=== PATIENT | male | born 2000 | race African-American/Black ===

== ENCOUNTER 2022-01-28 13:03 | Emergency (ER) | payer SELFPAY ==
[2022-01-28 13:50] LABS: Absolute Lymphocytes (CBC) 1.3 K/uL (0.7-4.9); Hematocrit 40.6 % (39.6-49.0); Lymphocytes % 17.7 % (15.3-44.8); MPV 7.5 fL (7.6-11.3)
[2022-01-28 14:09] LABS: Troponin High Sensitivity 15.3 pg/mL (<58.9)
--- NOTE | 2022-01-28 14:34 | RAD REPORT ---
EXAM DESCRIPTION: RAD - Chest Single View - 01/28/2022 2:11 pm CLINICAL HISTORY: CHEST PAIN COMPARISON: No comparisons FINDINGS: Lines: None. Lungs: No evidence of edema or pneumonia. Pleural: No significant pleural effusions or pneumothorax. Cardiac: The heart size is within normal limits. Bones: No acute fractures. Other: IMPRESSION: No acute cardiopulmonary disease.
[2022-01-28] MEDS ORDERED: KETOROLAC 30 MG/ML INJ ONE (14:46)
--- NOTE | 2022-01-28 15:59 | EDPHYS ---
Physician Documentation [facility] Name: Nelson aCstro Age: 21 yrs Sex: Male : 2000 Arrival Date: 01/28/2022 Time: 13:04 Bed 19 Private MD: ED Physician Brian Salvador HPI: 01/28 13:21 This 21 yrs old Black Male presents to ER via EMS with complaints of Chest Pain. [facility] 13:21 The patient or guardian reports chest pain that is located primarily in the substernal [facility] area. The pain does not radiate. Associated signs and symptoms: Pertinent positives:. The chest pain is described as sharp. Duration: The patient or guardian reports a single episode. This is a 21 year old male with no chronic medical conditions that presents to the ED with complaints of left lower chest pain exacerbated by deep breath. Symptoms began this morning around 6 am. Patient states developing hightheadedness later in the day. Denies hemoptysis, fever, states having a slight cough yesterday. Denies previous cardiac issues. . Historical: - Allergies: 13:06 No Known Allergies; tw2 - Home Meds: 13:06 None [Active]; tw2 - PMHx: 13:06 None; tw2 - PSHx: 13:06 None; tw2 - Immunization history:: Adult Immunizations. - Social history:: Smoking status: . ROS: 13:21 Constitutional: Negative for fever, chills, and weight loss. jmm 13:21 Respiratory: Negative for shortness of breath, cough, wheezing, and pleuritic chest pain, Abdomen/GI: Negative for abdominal pain, nausea, vomiting, diarrhea, and constipation. 13:21 Cardiovascular: Positive for chest pain. 13:21 All other systems are negative. Exam: 13:14 ECG was reviewed by the Attending Physician. ms3 13:21 Constitutional: This is a well developed, well nourished patient who is awake, alert, jmm and in no acute distress. Head/Face: atraumatic. Eyes: EOMI, no conjunctival erythema appreciated ENT: Moist Mucus Membranes Neck: Trachea midline, Supple Chest/axilla: Normal chest wall appearance and motion. Respiratory: Normal respirations, no respiratory distress appreciated 13:21 Abdomen/GI: Non distended, soft Back: Normal ROM Skin: General appearance color normal MS/ Extremity: Moves all extremities, no obvious deformities appreciated, no edema noted to the lower extremities Neuro: Awake and alert Psych: Behavior is normal, Mood is normal, Patient is cooperative and pleasant 13:21 Cardiovascular: Rate: normal, Rhythm: regular, Pulses: no pulse deficits are appreciated. Vital Signs: 13:05 BP 130 / 72; Pulse 65; Resp 17; Temp 98.1(TE); Pulse Ox 100% on R/A; Weight 77.11 kg tw2 (R); Height 5 ft. 9 in. (175.26 cm); Pain 8/10; 15:38 BP 120 / 51; Pulse 54; Resp 18; Pulse Ox 100% on R/A; maurice 13:05 Body Mass Index 25.10 (77.11 kg, 175.26 cm) tw2 MDM: 13:21 Patient medically screened. [facility] 15:58 Data reviewed: vital signs, nurses notes. [facility] 01/28 13:28 Order name: Basic Metabolic Panel; Complete Time: 14:15 [facility] 01/28 13:28 Order name: CBC with Diff; Complete Time: 13:58 [facility] 01/28 13:28 Order name: Troponin HS; Complete Time: 14:15 [facility] 01/28 13:28 Order name: XRAY Chest (1 view); Complete Time: 14:35 [facility] 01/28 13:28 Order name: EKG; Complete Time: 13:29 [facility] 01/28 13:28 Order name: Cardiac monitoring; Complete Time: 13:29 [facility] 01/28 13:28 Order name: EKG - Nurse/Tech; Complete Time: 13:29 [facility] 01/28 13:28 Order name: IV Saline Lock; Complete Time: 13:29 [facility] 01/28 13:28 Order name: Labs collected and sent; Complete Time: 13:29 [facility] 01/28 13:28 Order name: O2 Per Protocol; Complete Time: 13:29 [facility] 01/28 13:28 Order name: O2 Sat Monitoring; Complete Time: 13:29 [facility] EC:14 Rate is 62 beats/min. Rhythm is regular. QRS Clayton is Normal. Clinical impression: ms3 Normal ECG. Interpreted by me. Administered Medications: 14:46 Drug: Ketorolac 30 mg Route: IVP; Site: right antecubital; maurice 14:47 Follow up: Response: No adverse reaction maurice 16:10 Not Given (Patient Refused): Decadron - Dexamethasone 10 mg IVP once maurice Disposition: 19:57 Co-signature as Attending Physician, Brian Salvador DO I was immediately available on-site ms3 in the Emergency Department for consultation in the care of the patient.. Disposition Summary: 01/28/22 15:59 Discharge Ordered Location: Home jm Condition: Stable jmm Diagnosis - Chest pain, unspecified jmm Followup: jmm - With: Private Physician - When: 2 - 3 days - Reason: Recheck today's complaints, Continuance of care, Re-evaluation by your physician Discharge Instructions: - Discharge Summary Sheet jmm - Nonspecific Chest Pain, Adult jmm - Chest Wall Pain jmm Forms: - Medication Reconciliation Form jmm - Thank You Letter jmm - Antibiotic Education jmm - Prescription Opioid Use jmm Signatures: Dispatcher [employer] EDJean Figueroa PA PA jmm Wise, Tara, RN RN tw2 Brian Salvador DO DO ms3 Reta-Opal Quintero RN RN
--- NOTE | 2022-01-28 15:59 | ER ---
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 cough last night also tw2 having sob this morning. Normal sinus on ekg. no other symptoms reported. vs stable. Coronavirus screen: At this time, the client does not indicate any symptoms associated with coronavirus-19. Ebola Screen: Patient denies travel to an Ebola-affected area in the 21 days before illness onset. Initial Sepsis Screen: Does the patient meet any 2 criteria? No. Patient's initial sepsis screen is negative. Does the patient have a suspected source of infection? No. Patient's initial sepsis screen is negative. Risk Assessment: Do you want to hurt yourself or someone else? Patient reports no desire to harm self or others. Onset of symptoms was January 28, 2022. Care prior to arrival: EKG that showed normal sinus. 13:05 Method Of Arrival: EMS: [facility] tw2 13:05 Acuity: STEVEN 3 tw2 Triage Assessment: 13:06 General: Appears in no apparent distress. Behavior is calm, cooperative, appropriate tw2 for age. Pain: Complains of pain in xiphoid area, right breast and left breast. Cardiovascular: Reports chest pain, shortness of breath, Capillary refill < 3 seconds Patient's skin is warm and dry. Respiratory: Airway is patent Respiratory effort is even, unlabored, Respiratory pattern is regular, symmetrical. Historical: - Allergies: 13:06 No Known Allergies; tw2 - Home Meds: 13:06 None [Active]; tw2 - PMHx: 13:06 None; tw2 - PSHx: 13:06 None; tw2 - Immunization history:: Adult Immunizations. - Social history:: Smoking status: . Screenin:08 Abuse screen: Denies threats or abuse. Nutritional screening: No deficits noted. tw2 Tuberculosis screening: No symptoms or risk factors identified. Fall Risk None identified. Assessment: 13:08 Pain: Pain does not radiate. Pain began 30 min ago. tw2 Vital Signs: 13:05 BP 130 / 72; Pulse 65; Resp 17; Temp 98.1(TE); Pulse Ox 100% on R/A; Weight 77.11 kg tw2 (R); Height 5 ft. 9 in. (175.26 cm); Pain 8/10; 15:38 BP 120 / 51; Pulse 54; Resp 18; Pulse Ox 100% on R/A; maurice 13:05 Body Mass Index 25.10 (77.11 kg, 175.26 cm) tw2 ED Course: 13:04 Patient arrived in ED. tw2 13:06 Triage completed. tw2 13:07 Arm band placed on. tw2 13:07 Call light in reach. Side rails up X2. [employer] at bedside, pt is in hand cuffs at this tw2 time. CMS in tact. field operations coordinator on. Pulse ox on. NIBP on. 13:07 Patient maintains SpO2 saturation greater than 95% on room air. tw2 13:10 Opal Fabian, SUZAN is Primary Nurse. maurice 13:11 Jean Ramírez PA is PHCP. lavonne 13:11 Brian Salvador DO is Attending Physician. m 13:25 Inserted saline lock: 20 gauge in right antecubital area, using aseptic technique. zm Blood collected. 13:33 Basic Metabolic Panel Sent. zm 13:33 CBC with Diff Sent. zm 13:33 Troponin HS Sent. zm 14:12 XRAY Chest (1 view) In Process Unspecified. EDMS 16:51 No provider procedures requiring assistance completed. Inserted IV discontinued, maurice intact, Pressure dressing applied. Administered Medications: 14:46 Drug: Ketorolac 30 mg Route: IVP; Site: right antecubital; maurice 14:47 Follow up: Response: No adverse reaction maurice 16:10 Not Given (Patient Refused): Decadron - Dexamethasone 10 mg IVP once maurice Medication: 16:52 VIS not applicable for this client. maurice Outcome: 15:59 Discharge ordered by . lavonne 16:51 Discharged to Law Enforcement maurice 16:51 Condition: good 16:51 Discharge instructions given to patient, police. 16:52 Patient left the ED. maurice Signatures: Dispatcher [employer] EDMS Jean Ramírez PA PA jmm Wise, Tara, RN RN tw2 Opal Fabian, RN RN maurice Louis, Juhi zm
[2022-01-28] MEDS ORDERED: dexAMETHasone 4 MG/ML VIAL ONE (16:14)
[2022-01-28 17:05] VITALS: TEMP 98.1; O2SAT 100
[2022-01-28 17:07] VITALS: BP 120/51
--- NOTE | 2022-01-30 08:59 | EKG ---
Test Date: 2022-01-28 Test Time: 13:14:51 Health Clinician: RIC MEASUREMENT RESULTS: Intervals: Rate: 62 SD: 168 QRSD: 90 QT: 398 QTc: 403 Ford: P: 20 SD: 168 QRS: 30 T: 36 INTERPRETIVE STATEMENTS: Normal sinus rhythm Normal ECG No previous ECG available for comparison Electronically Signed On 01-30-22 08:55:39 CDT by Mohamud Santos
== END 2022-01-28 16:52 | disposition home or self-care (01) ==
LOC: ER 13:03
DX: R07.9 Chest pain, unspecified (principal); R05.9 Cough, unspecified
CPT/HCPCS: 36415; 71045; 80048; 84484; 85025; 93005; 96374; 99285; J1100

== ENCOUNTER 2022-08-23 10:46 | Emergency (ER) | payer SELFPAY ==
--- NOTE | 2022-08-23 12:37 | RAD REPORT ---
EXAM DESCRIPTION: RAD - Ankle Right 3 View - 08/23/2022 12:18 pm CLINICAL HISTORY: Pain Trauma, pain and swelling COMPARISON: No comparisons FINDINGS: Moderate soft tissue swelling is seen about the ankle, greatest laterally. Tiny ossific de nsity inferior to the medial malleolus may be chronic or related to a minimal avulsion. No definitive fracture or dislocation seen.
--- NOTE | 2022-08-23 12:44 | ER ---
Nurse's Notes [facility] Name: Nelson Castro Age: 22 yrs Sex: Male : 2000 Arrival Date: 08/23/2022 Time: 10:51 Bed IW3 Private MD: Diagnosis: Sprain of ankle Presentation: 08/23 11:02 Chief complaint: Patient states: rolled his right ankle yesterday , was running. iw Coronavirus screen: At this time, the client does not indicate any symptoms associated with coronavirus-19. Ebola Screen: Patient negative for fever greater than or equal to 101.5 degrees Fahrenheit, and additional compatible Ebola Virus Disease symptoms Patient denies exposure to infectious person. Patient denies travel to an Ebola-affected area in the 21 days before illness onset. No symptoms or risks identified at this time. Initial Sepsis Screen: Does the patient meet any 2 criteria? No. Patient's initial sepsis screen is negative. Does the patient have a suspected source of infection? No. Patient's initial sepsis screen is negative. Risk Assessment: Do you want to hurt yourself or someone else? Patient reports no desire to harm self or others. Onset of symptoms was August 22, 2022. 11:02 Method Of Arrival: Wheelchair iw 11:02 Acuity: STEVEN 4 iw Historical: - Allergies: 11:04 No Known Allergies; iw - Home Meds: 11:04 None [Active]; iw - PMHx: 11:04 None; iw - PSHx: 11:04 None; iw - Social history:: Smoking status: Reported history of juuling and/or vaping. Vital Signs: 11:02 BP 116 / 67; Pulse 74; Resp 16; Temp 98.1; Pulse Ox 99% on R/A; Weight 74.84 kg; Height iw 5 ft. 8 in. (172.72 cm); Pain 7/10; 11:02 Body Mass Index 25.09 (74.84 kg, 172.72 cm) iw ED Course: 10:51 Patient arrived in ED. mr 10:51 Omaira Lopes FNP-C is [facility]. snw 10:51 Saw Felipe MD is Attending Physician. snw 11:04 Triage completed. iw 11:04 Arm band placed on. iw 12:20 Ankle Right 3 View XRAY In Process Unspecified. EDMS 12:56 Yamileth Sheets, RN is Primary Nurse. iw Administered Medications: 13:03 Drug: [place] (HYDROcodone-acetaminophen) (7.5 mg-325 mg) 1 tabs Route: PO; iw Outcome: 12:43 Discharge ordered by MD. mendez 13:10 Patient left the ED. iw Signatures: Dispatcher [employer] EDVA Omaira Lopes, BRUCE ROOM SERVICE SUPERVISOR-Jade Murguia mr Yamileth Sheets, RN RN iw
--- NOTE | 2022-08-23 12:44 | EDPHYS ---
Physician Documentation [facility] Name: Nelson Castro Age: 22 yrs Sex: Male : 2000 Arrival Date: 08/23/2022 Time: 10:51 Bed IW3 Private MD: ED Physician Saw Felipe HPI: 08/23 12:57 This 22 yrs old Black Male presents to ER via Wheelchair with complaints of Ankle snw Injury. 12:57 The patient presents with pain, that is acute, swelling, tenderness. The complaints snw affect the right ankle. Onset: The symptoms/episode began/occurred suddenly, 1 day(s) ago, and became worse and became persistent. Context: The problem was sustained at a sports field or court, resulted from an old injury, The mechanism of injury involved inversion of the affected ankle. The patient can partially bear weight on the affected extremity. the patient is able to ambulate. Historical: - Allergies: 11:04 No Known Allergies; iw - Home Meds: 11:04 None [Active]; iw - PMHx: 11:04 None; iw - PSHx: 11:04 None; iw - Social history:: Smoking status: Reported history of juuling and/or vaping. ROS: 12:45 MS/Extremity: Negative for injury and deformity except to right ankle, rolled while snw playing football Exam: 11:31 Constitutional: This is a well developed, well nourished patient who is awake, alert, snw and in no acute distress. Head/Face: Normocephalic, atraumatic. Eyes: Pupils equal round and reactive to light, extra-ocular motions intact. Lids and lashes normal. Conjunctiva and sclera are non-icteric and not injected. Cornea within normal limits. Periorbital areas with no swelling, redness, or edema. ENT: Nares patent. No nasal discharge, no septal abnormalities noted. Tympanic membranes are normal and external auditory canals are clear. Oropharynx with no redness, swelling, or masses, exudates, or evidence of obstruction, uvula midline. Mucous membranes moist. Neck: Trachea midline, no thyromegaly or masses palpated, and no cervical lymphadenopathy. Supple, full range of motion without nuchal rigidity, or vertebral point tenderness. No Meningismus. Chest/axilla: Normal chest wall appearance and motion. Nontender with no deformity. No lesions are appreciated. Cardiovascular: Regular rate and rhythm with a normal S1 and S2. No gallops, murmurs, or rubs. Normal PMI, no JVD. No pulse deficits. Respiratory: Lungs have equal breath sounds bilaterally, clear to auscultation and percussion. No rales, rhonchi or wheezes noted. No increased work of breathing, no retractions or nasal flaring. Abdomen/GI: Soft, non-tender, with normal bowel sounds. No distension or tympany. No guarding or rebound. No evidence of tenderness throughout. Back: No spinal tenderness. No costovertebral tenderness. Full range of motion. Skin: Warm, dry with normal turgor. Normal color with no rashes, no lesions, and no evidence of cellulitis. Neuro: Awake and alert, GCS 15, oriented to person, place, time, and situation. Cranial nerves II-XII grossly intact. Motor strength 5/5 in all extremities. Sensory grossly intact. Cerebellar exam normal. Normal gait. Psych: Awake, alert, with orientation to person, place and time. Behavior, mood, and affect are within normal limits. 11:31 Musculoskeletal/extremity: Extremities: grossly normal except: noted in the right ankle: decreased ROM, swelling, tenderness, ROM: limited active range of motion due to pain, limited passive range of motion due to pain, in the right ankle, Circulation is intact in all extremities. Sensation intact. Vital Signs: 11:02 BP 116 / 67; Pulse 74; Resp 16; Temp 98.1; Pulse Ox 99% on R/A; Weight 74.84 kg; Height iw 5 ft. 8 in. (172.72 cm); Pain 7/10; 11:02 Body Mass Index 25.09 (74.84 kg, 172.72 cm) iw MDM: 11:07 Patient medically screened. fredrick 12:43 Differential diagnosis: fracture, sprain, arthritis, gout. Data reviewed: vital signs, snw nurses notes. I considered the following discharge prescriptions or medication management in the emergency department Medications were administered in the Emergency Department. See MAR. Care significantly affected by the following chronic conditions: multiple previous fx/sprain of this ankle. Counseling: I had a detailed discussion with the patient and/or guardian regarding: the historical points, exam findings, and any diagnostic results supporting the discharge/admit diagnosis, radiology results, the need for outpatient follow up, for definitive care, a orthopedic surgeon, to return to the emergency department if symptoms worsen or persist or if there are any questions or concerns that arise at home. Special discussion: Based on the history and exam findings, there is no indication for further emergent testing or inpatient evaluation. I discussed with the patient/guardian the need to see the orthopedic surgeon for further evaluation of the symptoms. I discussed with the patient/guardian the need to see the primary care provider for further evaluation of the symptoms. 08/23 11:10 Order name: Ankle Right 3 View XRAY; Complete Time: 12:41 snw 08/23 12:42 Order name: Walking boot; Complete Time: 13:06 snw Administered Medications: 13:03 Drug: [place] (HYDROcodone-acetaminophen) (7.5 mg-325 mg) 1 tabs Route: PO; iw Disposition Summary: 08/23/22 12:43 Discharge Ordered Location: Home snw Condition: Stable snw Diagnosis - Sprain of ankle snw Followup: snw - With: Emergency Department - When: As needed - Reason: Worsening of condition Followup: snw - With: Private Physician - When: 2 - 3 days - Reason: Recheck today's complaints, Continuance of care, Re-evaluation by your physician Discharge Instructions: - Discharge Summary Sheet snw - Ankle Sprain snw - RICE Therapy for Routine Care of Injuries snw - Walking Boot, Adult snw Forms: - Medication Reconciliation Form snw - Thank You Letter snw - Antibiotic Education snw - Prescription Opioid Use snw - Work release form iw Prescriptions: - Mobic 7.5 mg Oral Tablet - take 1 tablet by ORAL route once daily take with food; 20 tablet; Refills: 0, snw Product Selection Permitted - Tramadol 50 mg Oral Tablet - take 1 tablet by ORAL route every 8 hours as needed; 12 tablet; Refills: 0, snw Product Selection Permitted Signatures: Dispatcher [employer] Saw Sutton MD MD cha Waters, Shelly, ANALYSIS ANALYST-C ANALYSIS ANALYST-Csnw Yamileth Sheets, RN RN iw
[2022-08-23] MEDS ORDERED: HYDROCODONE/APAP 7.5/325 MG TAB ONE (13:03)
[2022-08-23 13:30] VITALS: BP 116/67; TEMP 98.1; O2SAT 99
== END 2022-08-23 13:10 | disposition home or self-care (01) ==
LOC: ER 10:46
DX: S93.401A Sprain of unspecified ligament of right ankle, initial encounter (principal)
CPT/HCPCS: 99283

== ENCOUNTER 2024-04-09 06:36 | Emergency (ER) | payer BC, SELFPAY ==
--- NOTE | 2024-04-09 08:15 | EDPHYS ---
Physician Documentation [facility] Name: Nelson Castro Age: 23 yrs Sex: Male : 2000 Arrival Date: 04/09/2024 Time: 06:36 Bed 12 Private MD: ED Physician Phil Mesa HPI: 04/09 07:15 This 23 yrs old Black Male presents to ER via Wheelchair with complaints of Ankle ec2 Injury. 07:15 Patient arrives today for evaluation of a right ankle injury. States that he rolled his ec2 ankle yesterday while playing basketball. Otherwise no other complaints.. Historical: - Allergies: 07:09 No Known Allergies; ap3 - Home Meds: 07:09 None [Active]; ap3 - PMHx: 07:09 None; ap3 - Immunization history:: Client reports having NOT received the Covid vaccine. Flu vaccine is not up to date. - Infectious Disease History:: Denies. - Social history:: Smoking status: Reported history of juuling and/or vaping. ROS: 07:15 Constitutional: as per hpi ec2 Exam: 07:15 Constitutional: GEN: NAD Head: atraumatic Eyes: EOMI Ears: External ears are ec2 normal. CV: regular rate LUNGS: no respiratory distress ABD: non-distended SKIN: no evidence of rashes MSK: Right ankle with TTP to the medial and lateral malleolus. Vital Signs: 07:07 BP 142 / 80; Pulse 81; Resp 17; Temp 98.3; Pulse Ox 99% on R/A; Weight 78.93 kg; Height ap3 5 ft. 8 in. ; Pain 9/10; 08:28 Temp 98.1; Pulse Ox 100% ; Pain 6/10; ap3 07:07 Body Mass Index 26.46 (78.93 kg, 172.72 cm) ap3 07:07 Pain Scale: Adult ap3 08:28 Pain Scale: Adult ap3 MDM: 07:11 Patient medically screened. ec2 07:16 Data reviewed: vital signs. ED course: Patient arrives today for evaluation of right ec2 ankle injury. Examination remarkable for MSK findings as noted above. Will obtain radiograph. Differential includes fracture, sprain.. 08:15 ED course: Ankle x-ray independently reviewed and interpreted by me, shows no bony ec2 fracture, soft tissue swelling noted. Will discharge home, presentation consistent with ankle sprain. Return precautions given.. 04/09 07:12 Order name: Ankle Right 3 View XRAY; Complete Time: ec2 04/09 07:17 Order name: Tamir Wrap; Complete Time: ec2 Administered Medications: No medications were administered Disposition Summary: 04/09/24 08:15 Discharge Ordered Notes: Location: Home ec2 Condition: Stable ec2 Diagnosis - Sprain of ankle ec2 Followup: ec2 - With: Private Physician - When: - Reason: Re-evaluation by your physician Discharge Instructions: - Discharge Summary Sheet ec2 - Ankle Sprain, [id number] ec2 Forms: - Work release form ec2 - Medication Reconciliation Form ec2 - Antibiotic Education ec2 - Prescription Opioid Use ec2 - Patient Portal Instructions ec2 - Leadership Thank You Letter ec2 Prescriptions: - methocarbamol 500 mg Oral tablet - take 1 tablet ORAL route 4 times per day; 30 tablet; Refills: 0, Product ec2 Selection Permitted Signatures: Dispatcher [employer] Ban Hudson RN RN ap3 Phil Mesa MD MD ec2
--- NOTE | 2024-04-09 08:15 | ER ---
Nurse's Notes [facility] Name: Nelson Castro Age: 23 yrs Sex: Male : 2000 Arrival Date: 04/09/2024 Time: 06:36 Bed 12 Private MD: Diagnosis: Sprain of ankle Presentation: 04/09 07:07 Chief complaint: Patient states: he has an old right ankle injury, and was playing ap3 basketball yesterday when he "rolled it again". patient complains of right ankle pain of which he rates a 9/10 on the pain scale at this time. Coronavirus screen: At this time, the client does not indicate any symptoms associated with coronavirus-19. Ebola Screen: No symptoms or risks identified at this time. Initial Sepsis Screen: Does the patient meet any 2 criteria? No. Patient's initial sepsis screen is negative. Does the patient have a suspected source of infection? No. Patient's initial sepsis screen is negative. Risk Assessment: Do you want to hurt yourself or someone else? Patient reports no desire to harm self or others. Onset of symptoms is unknown. 07:07 Method Of Arrival: Wheelchair ap3 07:07 Acuity: STEVEN 4 ap3 Triage Assessment: 07:09 General: Appears in no apparent distress. Behavior is calm, cooperative, appropriate ap3 for age. Pain: Complains of pain in right ankle Pain currently is 9 out of 10 on a pain scale. Neuro: Level of Consciousness is awake, alert, obeys commands, Oriented to person, place, time, situation, Appropriate for age. Cardiovascular: Patient's skin is warm and dry. Respiratory: Airway is patent Respiratory effort is even, unlabored, Respiratory pattern is regular, symmetrical. Musculoskeletal: Reports pain in right ankle. Historical: - Allergies: 07:09 No Known Allergies; ap3 - Home Meds: 07:09 None [Active]; ap3 - PMHx: 07:09 None; ap3 - Immunization history:: Client reports having NOT received the Covid vaccine. Flu vaccine is not up to date. - Infectious Disease History:: Denies. - Social history:: Smoking status: Reported history of juuling and/or vaping. Screenin:10 Abuse screen: Denies threats or abuse. Nutritional screening: No deficits noted. ap3 Tuberculosis screening: No symptoms or risk factors identified. 07:10 [facility] ED Fall Risk Assessment (Adult) History of falling in the last 3 months, ap3 including since admission No falls in past 3 months (0 pts) Confusion or Disorientation No (0 pts) Intoxicated or Sedated No (0 pts) Impaired Gait Yes (1 pt) Mobility Assist Device Used No (0 pt) Altered Elimination No (0 pt) Score/Fall Risk Level 0 - 2 = Low Risk Oriented to surroundings, Maintained a safe environment, Educated pt \\T\\ family on fall prevention, incl call for assistance when getting out of bed, Assessed \\T\\ reinforced patient's understanding of fall precautions, Hourly rounding (assess needs \\T\\ fall precautionary measures) done, Used ambulatory aids as needed (educated on \\T\\ assisted with), Used gait belt as appropriate. Vital Signs: 07:07 BP 142 / 80; Pulse 81; Resp 17; Temp 98.3; Pulse Ox 99% on R/A; Weight 78.93 kg; Height ap3 5 ft. 8 in. ; Pain 9/10; 08:28 Temp 98.1; Pulse Ox 100% ; Pain 6/10; ap3 07:07 Body Mass Index 26.46 (78.93 kg, 172.72 cm) ap3 07:07 Pain Scale: Adult ap3 08:28 Pain Scale: Adult ap3 ED Course: 06:38 Patient arrived in ED. [id number] 07:04 Phil Mesa MD is Attending Physician. ec2 07:09 Triage completed. ap3 07:10 Arm band placed on right wrist. ap3 07:20 Patient has correct armband on for positive identification. Bed in low position. Call ap3 light in reach. Side rails up X 1. 07:31 Ankle Right 3 View XRAY In Process Unspecified. EDMS 08:27 Provided Education on: discharge instructions. crutch education. ap3 08:27 No provider procedures requiring assistance completed. Patient did not have IV access ap3 during this emergency room visit. Administered Medications: No medications were administered Medication: 08:28 VIS not applicable for this client. ap3 Outcome: 08:15 Discharge ordered by . ec2 08:27 Discharged to home with crutches, with family, ap3 08:27 Condition: good 08:27 Discharge instructions given to patient, Instructed on discharge instructions, follow up and referral plans. crutch walking, Demonstrated understanding of instructions, follow-up care, crutch walking, Prescriptions given X 08:29 Patient left the ED. ap3 Signatures: Dispatcher [employer] Ban Hudson RN RN ap3 Deepika Pimentel [email or web address] Phil Mesa MD MD ec2
--- NOTE | 2024-04-09 08:25 | RAD REPORT ---
EXAM DESCRIPTION: RAD - Ankle Right 3 View - 04/09/2024 7:30 am CLINICAL HISTORY: ankle injury COMPARISON: Ankle Right 3 View dated 08/23/2022 TECHNIQUE: Right ankle, 3 views. FINDINGS: No fracture, dislocation or periosteal reaction. No joint effusion seen. No joint space na rrowing. Mild soft tissue swelling about the lateral malleolus. IMPRESSION: Mild lateral soft tissue swelling. No acute osseous abnormality.
[2024-04-09 08:33] VITALS: BP 142/80
[2024-04-09 08:35] VITALS: TEMP 98.1; O2SAT 100
== END 2024-04-09 08:29 | disposition home or self-care (01) ==
LOC: ER 06:36
DX: S93.401A Sprain of unspecified ligament of right ankle, initial encounter (principal)
CPT/HCPCS: 99283

== ENCOUNTER 2024-09-05 11:10 | Emergency (ER) | payer BC ==
--- NOTE | 2024-09-05 11:18 | EDPHYS ---
Physician Documentation [facility] Name: Nelson Castro Age: 24 yrs Sex: Male : 2000 Arrival Date: 09/05/2024 Time: 11:10 Bed Waiting Private MD: ED Physician Phil Mesa HPI: 09/05 11:20 This 24 yrs old Black Male presents to ER via Ambulatory with complaints of Work note. ec2 11:20 Patient with no complaints, here for work note.. ec2 Historical: - Allergies: 11:19 No Known Allergies; ld1 - Home Meds: 11:19 None [Active]; ld1 - PMHx: 11:19 None; ld1 - PSHx: 11:19 None; ld1 - Immunization history:: Adult Immunizations up to date. - Infectious Disease History:: Denies. - Social history:: Smoking status: Patient denies any tobacco usage or history of. ROS: 11:20 Constitutional: as per hpi ec2 Exam: 11:20 Constitutional: GEN: NAD Head: atraumatic Eyes: EOMI CV: regular rate LUNGS: no ec2 respiratory distress Vital Signs: 11:18 BP 126 / 79; Pulse 84; Resp 18; Temp 97.6(TE); Pulse Ox 100% on R/A; Weight 83.91 kg; ld1 Height 5 ft. 8 in. ; Pain 0/10; 11:18 Body Mass Index 28.13 (83.91 kg, 172.72 cm) ld1 11:18 Pain Scale: Adult ld1 MDM: 11:17 Medical Screening Exam initiated ec2 11:20 Data reviewed: vital signs, nurses notes. ED course: Patient here for no specific ec2 complaints, here for work note. Patient discharged home. MSE completed. Administered Medications: No medications were administered Disposition Summary: 09/05/24 11:17 Discharge Ordered Notes: Location: Home ec2 Condition: Stable ec2 Diagnosis - Encounter for general adult medical examination ec2 Followup: ec2 - With: Private Physician - When: - Reason: Re-evaluation by your physician Discharge Instructions: - Discharge Summary Sheet ec2 Forms: - Work release form ec2 - Medication Reconciliation Form ec2 - Antibiotic Education ec2 - Prescription Opioid Use ec2 - Patient Portal Instructions ec2 - Leadership Thank You Letter ec2 Signatures: Edita Salvador RN RN ld1 Phil Mesa, MD ec2
--- NOTE | 2024-09-05 11:22 | ER ---
Nurse's Notes [facility] Name: Nelson Castro Age: 24 yrs Sex: Male : 2000 Arrival Date: 09/05/2024 Time: 11:10 Bed Waiting Private MD: Diagnosis: Encounter for general adult medical examination Presentation: 09/05 11:18 Chief complaint: Patient states: Pt reports throwing up Tuesday night - work needs note ld1 to return. Pt reports being symptom free for two days. Coronavirus screen: At this time, the client does not indicate any symptoms associated with coronavirus-19. Ebola Screen: No symptoms or risks identified at this time. Initial Sepsis Screen: Does the patient meet any 2 criteria? No. Patient's initial sepsis screen is negative. Does the patient have a suspected source of infection? No. Patient's initial sepsis screen is negative. Risk Assessment: Do you want to hurt yourself or someone else? Patient reports no desire to harm self or others. Onset of symptoms was September 05, 2024. 11:18 Method Of Arrival: Ambulatory ld1 11:18 Acuity: STEVEN 5 ld1 Triage Assessment: 11:19 General: Appears in no apparent distress. comfortable, Behavior is calm, cooperative, ld1 appropriate for age. Pain: Denies pain. EENT: No signs and/or symptoms were reported regarding the EENT system. Neuro: Level of Consciousness is awake, alert, obeys commands, Oriented to person, place, time, situation. Cardiovascular: Capillary refill < 3 seconds Patient's skin is warm and dry. Respiratory: No deficits noted. GI: No signs and/or symptoms were reported involving the gastrointestinal system. : No signs and/or symptoms were reported regarding the genitourinary system. Derm: No signs and/or symptoms reported regarding the dermatologic system. Musculoskeletal: No signs and/or symptoms reported regarding the musculoskeletal system. Historical: - Allergies: 11:19 No Known Allergies; ld1 - Home Meds: 11:19 None [Active]; ld1 - PMHx: 11:19 None; ld1 - PSHx: 11:19 None; ld1 - Immunization history:: Adult Immunizations up to date. - Infectious Disease History:: Denies. - Social history:: Smoking status: Patient denies any tobacco usage or history of. Screenin:20 [facility] ED Fall Risk Assessment (Adult) History of falling in the last 3 months, ld1 including since admission No falls in past 3 months (0 pts) Confusion or Disorientation No (0 pts) Intoxicated or Sedated No (0 pts) Impaired Gait No (0 pts) Mobility Assist Device Used No (0 pt) Altered Elimination No (0 pt) Score/Fall Risk Level 0 - 2 = Low Risk Oriented to surroundings, Maintained a safe environment, Educated pt \T\ family on fall prevention, incl call for assistance when getting out of bed, Assessed \T\ reinforced patient's understanding of fall precautions, Provided non-skid footwear, Hourly rounding (assess needs \T\ fall precautionary measures) done, Used ambulatory aids as needed (educated on \T\ assisted with), Used gait belt as appropriate. Abuse screen: Denies threats or abuse. Denies injuries from another. Nutritional screening: No deficits noted. Tuberculosis screening: No symptoms or risk factors identified. Assessment: 11:20 Reassessment: See triage assessment. ld1 Vital Signs: 11:18 BP 126 / 79; Pulse 84; Resp 18; Temp 97.6(TE); Pulse Ox 100% on R/A; Weight 83.91 kg; ld1 Height 5 ft. 8 in. ; Pain 0/10; 11:18 Body Mass Index 28.13 (83.91 kg, 172.72 cm) ld1 11:18 Pain Scale: Adult ld1 ED Course: 11:11 Patient arrived in ED. mr 11:12 Phil Mesa MD is Attending Physician. ec2 11:19 Triage completed. ld1 11:19 Arm band placed on right wrist. ld1 11:20 Patient has correct armband on for positive identification. Call light in reach. Pulse ld1 ox on. NIBP on. 11:20 No provider procedures requiring assistance completed. Patient did not have IV access ld1 during this emergency room visit. Administered Medications: No medications were administered Medication: 11:20 VIS not applicable for this client. ld1 Outcome: 11:17 Discharge ordered by . ec2 11:20 Discharged to home ambulatory, ld1 11:20 Condition: good 11:20 Discharge instructions given to patient, Instructed on discharge instructions, Demonstrated understanding of instructions, 11:21 Patient left the ED. ld1 Signatures: Jade Dominguez, Reg Reg mr Edita Salvador, RN RN ld1 Phil Mesa MD MD ec2
[2024-09-05 12:00] VITALS: BP 126/79; TEMP 97.6; O2SAT 100
== END 2024-09-05 11:21 | disposition home or self-care (01) ==
LOC: ER 11:10
DX: Z02.79 Encounter for issue of other medical certificate (principal)